=== PATIENT | female | born 1990 | race Caucasian/White ===

== ENCOUNTER 2020-08-26 10:11 | Inpatient (IN) | payer MEDICAID, SELFPAY ==
[~2020-08-26] VITALS: Ht 162.6 cm; Wt 90.7 kg
[2020-08-26] MEDS ORDERED: CITRIC ACID/SODIUM CITRATE 30 ML UDC PO SCH (10:20)
[2020-08-26 10:54] LABS: BASOPHILS % (AUTO) 0.4 % (0.0-2.0); EOSINOPHILS % (AUTO) 0.6 % (0.0-4.0); HEMATOCRIT 32.8 % (36-48); HEMOGLOBIN 10.2 g/dL (12.0-16.0); LYMPHOCYTES # (AUTO) 1.4 K/uL (2.5-16.5); LYMPHOCYTES % (AUTO) 18.4 % (20.5-51.1); MEAN CORPUSCULAR HEMOGLOBIN 22 pg (27-31); MEAN CORPUSCULAR HGB CONC 31 g/dL (33-37); MEAN CORPUSCULAR VOLUME 71.2 fL (80-94); MONOCYTES # (AUTO) 0.5 K/uL (0.8-1.0); NEUTROPHILS # (AUTO) 5.8 K/uL (1.8-7.7); NEUTROPHILS % (AUTO) 74.6 % (42.2-75.2); PLATELET COUNT (AUTO) 193 K/uL (140-450); RED BLOOD CELL COUNT(AUTO) 4.61 MIL/uL (4.20-5.40); RED CELL DISTRIBUTION WIDTH 14.2 % (11.6-13.7); WHITE BLOOD COUNT (AUTO) 7.8 K/uL (4.8-10.8)
[2020-08-26 10:56] LABS: APPEARANCE,URINE CLEAR (CLEAR); BILIRUBIN,URINE NEGATIVE (NEGATIVE); BLOOD, URINE NEGATIVE (NEGATIVE); COLOR,URINE YELLOW (YELLOW); LEUKOCYTE ESTERASE ,URINE TRACE (NEGATIVE); NITRITE, URINE NEGATIVE (NEGATIVE); PH,URINE 7.5 (5.0-9.0); UGLUCOSE NEGATIVE (NEGATIVE)
[2020-08-26] MEDS: LACTATED RINGERS 1,000 ML IV SCH ×2 (11:00→12:09)
[2020-08-26 11:03] VITALS: BP 108/54
[2020-08-26 11:15] LABS: ALBUMIN 2.7 g/dL (3.4-5.0); ANION GAP 12.8 (8-16); CARBON DIOXIDE 26.2 mmol/L (21-32); CREATININE 0.6 mg/dL (0.6-1.3); TOTAL BILIRUBIN 0.3 mg/dL (0.0-1.0)
[2020-08-26 11:53] LABS: RBC,URINE NONE SEEN /HPF (0-5); WBC,URINE 0-5 /HPF (0-5)
[2020-08-26] MEDS ORDERED: ONDANSETRON 4 MG/2 ML VIAL ONE (12:44)
[2020-08-26] MEDS ORDERED: METOCLOPRAMIDE 10 MG/2 ML INJ VIAL ONE (12:44)
[2020-08-26] MEDS ORDERED: DEXAMETHASONE 4 MG/ML VIAL ONE (12:44)
[2020-08-26] MEDS ORDERED: ePHEDrine 50 MG/ML VIAL ONE (12:44)
[2020-08-26] MEDS ORDERED: MORPHINE PRES FREE 10 MG/10 ML AMP IV ONE (12:49)
[2020-08-26] MEDS ORDERED: IBUPROFEN 800 MG TAB PO PRN (12:55)
[2020-08-26] MEDS ORDERED: KETOROLAC 30 MG/ML VIAL IVP PRN (12:55)
[2020-08-26] MEDS ORDERED: METHYLERGONOVINE 0.2 MG/ML AMP IM PRN (12:55)
[2020-08-26] MEDS ORDERED: oxyCODONE/APAP 5/325 MG 1 TAB TAB PO PRN (12:55)
[2020-08-26] MEDS ORDERED: TEMAZEPAM 15 MG CAP PO PRN (12:55)
[2020-08-26] MEDS ORDERED: NALOXONE 0.4 MG/ML VIAL IVP PRN ×3 (13:20)
[2020-08-26] MEDS ORDERED: ONDANSETRON 4 MG/2 ML VIAL IVP PRN ×2 (13:20→13:25)
[2020-08-26] MEDS ORDERED: diphenhydrAMINE 50 MG/ML VIAL IVP PRN ×2 (13:20→13:25)
[2020-08-26] MEDS ORDERED: HYDROmorphone 1 MG/ML AMP IVP PRN (13:25)
[2020-08-26] MEDS ORDERED: MEPERIDINE 25 MG/ML SYR IVP PRN (13:25)
[2020-08-26] MEDS ORDERED: BLOOD GLUCOSE MONITORING 1 DEV DEV FS SCH (13:25)
[2020-08-26] MEDS ORDERED: OXYTOCIN 20 UNITS in LACTATED RINGERS 1,000 ML IV SCH (13:25)
[2020-08-26] MEDS ORDERED: LACTATED RINGERS 1,000 ML IV SCH (13:25)
[2020-08-26] MEDS ORDERED: OXYTOCIN 20 UNITS/LR PREMIX 1,000 ML IV ONE ×2 (13:45→18:51)
[2020-08-26] MEDS: OXYTOCIN 20 UNITS in LACTATED RINGERS 1,000 ML IV SCH (18:53)
[2020-08-26] MEDS: DOCUSATE SOD/SENNA 50/8.6 MG 1 TAB PO SCH (21:00)
[2020-08-27] MEDS ORDERED: OXYTOCIN 20 UNITS/LR PREMIX 1,000 ML IV ONE ×2 (02:46→10:37)
[2020-08-27] MEDS: OXYTOCIN 20 UNITS in LACTATED RINGERS 1,000 ML IV SCH (02:56)
[2020-08-27] MEDS: SIMETHICONE 80 MG TAB.CHEW PO PRN (09:29)
[2020-08-27 14:15] LABS: BASOPHILS % (AUTO) 0.2 % (0.0-2.0); EOSINOPHILS # (AUTO) 0.1 K/uL (0-0.4); EOSINOPHILS % (AUTO) 0.7 % (0.0-4.0); HEMATOCRIT 25.7 % (36-48); LYMPHOCYTES # (AUTO) 2.5 K/uL (2.5-16.5); LYMPHOCYTES % (AUTO) 21.6 % (20.5-51.1); MEAN CORPUSCULAR HEMOGLOBIN 22 pg (27-31); MEAN CORPUSCULAR HGB CONC 31 g/dL (33-37); MEAN CORPUSCULAR VOLUME 71.4 fL (80-94); MONOCYTES # (AUTO) 0.7 K/uL (0.8-1.0); MONOCYTES % (AUTO) 6.5 % (1.7-9.3); NEUTROPHILS # (AUTO) 8.2 K/uL (1.8-7.7); PLATELET COUNT (AUTO) 138 K/uL (140-450); RED CELL DISTRIBUTION WIDTH 13.6 % (11.6-13.7); WHITE BLOOD COUNT (AUTO) 11.5 K/uL (4.8-10.8)
[2020-08-27] MEDS: oxyCODONE/APAP 5/325 MG 1 TAB TAB PO PRN ×2 (15:23→23:59)
[2020-08-27] MEDS ORDERED: CAMERA MC ONE (20:57)
[2020-08-27] MEDS: DOCUSATE SOD/SENNA 50/8.6 MG 1 TAB PO SCH (21:07)
[2020-08-28] MEDS: SIMETHICONE 80 MG TAB.CHEW PO PRN (09:37)
[2020-08-28] MEDS: oxyCODONE/APAP 5/325 MG 1 TAB TAB PO PRN (09:37)
--- NOTE | 2020-08-28 10:58 | NUR ---
PATIENT HAS BEEN SCREENED AND CATEGORIZED LOW NUTRITION RISK. PATIENT WILL BE SEEN WITHIN 7 DAYS OF ADMISSION. 09/02/2020 JACOB STILES MBA, RD
== END 2020-08-28 14:00 | disposition home or self-care (01) | DRG 540 ==
LOC: MLD 10:11 → MFCC 14:25
PROVIDERS: ADMIT Obstetrics & Gynecology; ATTEND Obstetrics & Gynecology
PROC: 10D00Z1 Extraction of Products of Conception, Low, Open Approach (ICD-10-PCS; principal; 2020-08-26 12:30)
DX: O34.211 Maternal care for low transverse scar from previous cesarean delivery (principal); O60.23X0 Term delivery with preterm labor, third trimester, not applicable or unspecified; Z20.828 Contact with and (suspected) exposure to other viral communicable diseases; Z37.0 Single live birth; Z3A.38 38 weeks gestation of pregnancy; Z91.018 Allergy to other foods
CPT/HCPCS: 36415; 51702; 59025; 80053; 81001; 85025; 86592; 86886; 86900; 86901; 87081; J0690; J1100; J1200; J2270; J2405; J2590; J2765; J7060